=== PATIENT | male | born 1950 | race Caucasian/White ===

== ENCOUNTER → 2017-01-16 | Outpatient (CLI) | payer OTHER ==
[~2017-01-16] MED LIST: ADVI200C9 PO; BUTA1CAP5 PO; CEPH500C3 PO; DIFL0.0512 OP; LORT5TAB PO; NAPR500 PO; OMEP10CA PO
[2017-01-16 13:50] LABS: BLOOD GAS BASE EXCESS -1.4 mmol/L (-2-2); BLOOD GAS CARBOXYHEMOGLOBIN 1.5 % (0-4); BLOOD GAS HCO3 23 mmol/L (22-26); BLOOD GAS METHEMOGLOBIN 1.1 % (0-2); BLOOD GAS O2 HGB SATURATION 95 % (90-100); BLOOD GAS OXYGEN CONTENT 20.2 Vol % (12.0-20.0); BLOOD GAS PCO2 35 mmHg (38-42); BLOOD GAS PO2 97 mmHg (61-120); BLOOD GAS TOTAL HGB 15.1 G/DL (12.0-16.0); CRITICAL VALUE NO; DRAW SITE RT RADIAL; FIO2 21 %; NUMBER OF ARTERIAL PUNCTURES 1; STAT NO; TEMP CORR TO 98.6; ULNAR PULSE PRESENT
--- NOTE | 2017-01-29 11:37 | RSPPFT ---
DATE OF PROCEDURE: 01/16/17 COMMENTS: Spirometry with FVC of 3.2, FEV1 of 2.7, FEV1/FVC ratio 85% of predicted. The TLC is 93%. Diffusion capacity is 68% of predicted and normal when corrected for alveolar volume. Room air arterial blood gases show pH of 7.42, PCO2 of 35, PO2 of 97. IMPRESSION: 1. No evidence of airways obstruction or restriction. 2. Mild reduction in diffusion capacity but normal when corrected for alveolar volume. 3. Adequate oxygenation and alveolar ventilation.
== END ==
LOC: HRSP 11:50
PROVIDERS: ATTEND Internal Medicine Sleep Medicine
DX: R06.89 Other abnormalities of breathing (principal)
CPT/HCPCS: 36600; 82805; 94060; 94726; 94729

== ENCOUNTER 2017-02-03 13:18 | Emergency (ER) | payer OTHER ==
[~2017-02-03] VITALS: Ht 175.3 cm; Wt 87.0 kg
[~2017-02-03 13:18] MED LIST changes: -BUTA1CAP5 PO; -DIFL0.0512 OP; -OMEP10CA PO
[2017-02-03 13:20] VITALS: BP 160/86; PULSE 109; RESP 20; TEMP 98.4; O2SAT 95
[2017-02-03 15:06] VITALS: BP 154/89; PULSE 78; RESP 21; TEMP 98.3; O2SAT 98
[2017-02-03] MEDS ORDERED: DIFL0.0512 OP (15:17)
[2017-02-03] MEDS ORDERED: OMEP10CA PO (15:17)
--- NOTE | 2017-02-03 15:26 | PD ---
HPI Chief Complaint: Headache Time Seen by Provider: 15:26 Travel History International Travel<30 days: No Contact w/Intl Traveler<30days: No Traveled to known affect area: No History of Present Illness HPI Our patient is a 66 year old male presenting with headache of 1 month duration. He describes it as a 8/10 pain band like pain that circles from his forehead to the back of his head like a tight band. He is also experiencing pain behind his right eye. He states that his headache began to get worse yesterday and this morning. He has tried taking 400 mg Advil twice a day for 2 weeks, but this has not resolved completely resolved his pain. Lying down and sitting in a chair make his pain worse. He is experiencing associated fatigue and dyspnea, but denies changes in vision, nausea, vomiting, headache, weakness , chest pain, abdominal pain or irregularities in urine/bowel function. He denies having similar symptoms before and cannot recall a trigger for his headache. PFSH Past Medical History Narrative Medical Subdural hematoma 1 year ago treated with pain medication Uveitis GERD Seasonal allergies Cerebrovascular Accident: Yes GERD: Yes Respiratory: Yes (pulmonary fibrosis ) Immunizations Current: Yes Past Surgical History Surgical History: No Previous Surgery Eye Surgery: Yes (uvtis ) Family History Narrative Family History Heart disease - Father Social History Alcohol Use: Yes (2-3 shots a day ) Tobacco Use: No (quit 25 years ago ) Substance Use: No Allergies-Medications (Allergen,Severity, Reaction): Coded Allergies: No Known Allergies (Verified , 02/03/17) Comments NKDA Reported Meds & Prescriptions Reported Meds & Active Scripts Active Voskdwiall-Armsknencgkps-Dhulnyqv 50-300-40 Mg Cap 1 Cap PO Q4H PRN Do not exceed 6 capsules/day. Reported Durezol Opth (Difluprednate Opth) 0.05% Emul 1 Drop OP BID Omeprazole 10 Mg Cap 10 Mg PO DAILY Narrative Medication List of his home meds were reviewed from the nursing note. Review of Systems Except as stated in HPI: all other systems reviewed are Neg Respiratory: Positive: Shortness of Breath Physical Exam Narrative GENERAL: Awake, alert, moderate distress SKIN: Focused skin assessment warm/dry. HEAD: Atraumatic. Normocephalic. Tenderness on palpation of bitemporal area EYES: Pupils equal and round. No scleral icterus. No injection or drainage. ENT: No nasal bleeding or discharge. Mucous membranes pink and moist. NECK: Trachea midline. No JVD. CARDIOVASCULAR: Regular rate and rhythm. No murmur appreciated. RESPIRATORY: No accessory muscle use. Clear to auscultation. Breath sounds equal bilaterally. GASTROINTESTINAL: Abdomen soft, non-tender, nondistended. Hepatic and splenic margins not palpable. MUSCULOSKELETAL: No obvious deformities. No clubbing. No cyanosis. No edema. NEUROLOGICAL: Awake and alert. No obvious cranial nerve deficits. Motor grossly within normal limits. Normal speech. PSYCHIATRIC: Appropriate mood and affect; insight and judgment normal. Data Data Last Documented VS Orders Complete Blood Count With Diff (02/03/17 16:15) Basic Metabolic Panel (Bmp) (02/03/17 16:15) Ct Brain W/O Iv Contrast(Rout) (02/03/17 16:15) Ecg Monitoring (02/03/17 16:15) Iv Access Insert/Monitor (02/03/17 16:15) Oximetry (02/03/17 16:15) Sodium Chloride 0.9% Flush (Ns Flush) (02/03/17 16:15) Ketorolac Inj (Toradol Inj) (02/03/17 16:15) Metoclopramide Inj (Reglan Inj) (02/03/17 16:15) Sodium Chlor 0.9% 1000 Ml Inj (Ns 1000 M (02/03/17 16:15) Labs MDM Medical Decision Making Medical Screen Exam Complete: Yes Emergency Medical Condition: Yes Medical Record Reviewed: Yes Differential Diagnosis Tension H/A, Migraine, Cluster H/A, intracranial bleed Narrative Course Patient was examined and agreed to CT scan to further evaluate his symptoms. 6:05 PM blood test results of back and CAT scan and they're all within normal limit. I will reassess the patient and he has finished getting his medications and IV fluid and he says his headache is down to 2 out of 10. He's been given instructions and he is comfortable going home. Procedures EKG Prior to Arrival: No Diagnosis Primary Impression: Tension-type headache Qualified Code: G44.211 - Intractable episodic tension-type headache Referrals: Primary Care Physician Additional Instructions: Please return to the ER if the condition worsens or any other new concerns. Otherwise follow-up with your primary care in couple days. Drink lots of fluid , avoid alcohol, cigarettes or any other form of nicotine. Do not watch any television, computer or Smart phones for next 48 hours. Do not treat books or cause any strain to your eyes. Take the medication as per the prescription direction. I feel caffeinated beverages will be helpful. Med/Other Pt SpecificInfo: Prescription(s) given Scripts Kihgyuwhvd-Nfmifdhhxqibi-Qmclyeyh 50-300-40 Mg Cap1 Cap PO Q4H PRN (HEADACHE) # 20 CAP Ref 0 Do not exceed 6 capsules/day. Prov:Jyoti Jaimes MD 02/03/17 Disposition: 01 DISCHARGE HOME Condition: Stable Jyoti Jaimes MD Feb 03, 2017 15:26 Jyoti Jaimes MD Feb 03, 2017 15:26 Lymphocytes # (Auto) 2.0 TH/MM3 Monocytes # (Auto) 0.6 TH/MM3 Eosinophils # (Auto) 0.3 TH/MM3 Basophils # (Auto) 0.1 TH/MM3 CBC Comment DIFF FINAL Differential Comment Sodium Level 138 MEQ/L Potassium Level 4.1 MEQ/L Chloride Level 104 MEQ/L Carbon Dioxide Level 25.5 MEQ/L Anion Gap 9 MEQ/L Blood Urea Nitrogen 12 MG/DL Creatinine 0.72 MG/DL Estimat Glomerular Filtration 109 ML/MIN Rate Random Glucose 81 MG/DL Calcium Level 9.1 MG/DL MDM Medical Decision Making Medical Screen Exam Complete: Yes Emergency Medical Condition: No Differential Diagnosis Tension H/A, Migraine, Cluster H/A, intracranial bleed Narrative Course Patient was examined and agreed to CT scan to further evaluate his symptoms. 6:05 PM blood test results of back and CAT scan and they're all within normal limit. I will reassess the patient and he has finished getting his medications and IV fluid and he says his headache is down to 2 out of 10. He's been given instructions and he is comfortable going home. Procedures EKG Prior to Arrival: No Diagnosis Primary Impression: Tension-type headache Qualified Code: G44.211 - Intractable episodic tension-type headache Referrals: Primary Care Physician Additional Instructions: Please return to the ER if the condition worsens or any other new concerns. Otherwise follow-up with your primary care in couple days. Drink lots of fluid , avoid alcohol, cigarettes or any other form of nicotine. Do not watch any television, computer or Smart phones for next 48 hours. Do not treat books or cause any strain to your eyes. Take the medication as per the prescription direction. I feel caffeinated beverages will be helpful. Med/Other Pt SpecificInfo: Prescription(s) given Scripts Hspeoslhcl-Soeygrwxfuoyh-Djarwejx 50-300-40 Mg Cap1 Cap PO Q4H PRN (HEADACHE) # 20 CAP Ref 0 Do not exceed 6 capsules/day. Prov:Jyoti Jaimes MD 02/03/17 Disposition: 01 DISCHARGE HOME Condition: Stable Jyoti Jaimes MD Feb 03, 2017 15:26
[2017-02-03] MEDS ORDERED: SODIUM CHLORIDE 0.9% FLUSH 10 ML FLUSH IVF PRN (16:15)
[2017-02-03] MEDS ORDERED: KETOROLAC TROMETHAMINE 30 MG/ML (IVP) VIAL IVP ONE (16:15)
[2017-02-03] MEDS ORDERED: SODIUM CHLOR 0.9% 1000 ML INJ 1,000 ML IV ONE (16:15)
[2017-02-03] MEDS ORDERED: METOCLOPRAMIDE HCL 10 MG/2 ML VIAL IVP ONE (16:15)
[2017-02-03 16:37] VITALS: O2SAT 98
[2017-02-03 16:59] VITALS: BP 151/75; PULSE 71; RESP 18; O2SAT 98
[2017-02-03 17:01] LABS: BASOPHIL # 0.1 TH/MM3 (0-0.2); BASOPHIL % 0.8 % (0.0-2.0); EOSINOPHIL # 0.3 TH/MM3 (0-0.4); EOSINOPHIL % 3.6 % (0.0-4.0); HEMATOCRIT 42.8 % (39.0-51.0); HEMO FLAGS DIFF FINAL; LYMPH % 24.9 % (9.0-44.0); MEAN CELL VOLUME 87.3 FL (80.0-100.0); MEAN CORPUSCULAR HGB CONC 33.2 % (32.0-36.0); MONO % 7.3 % (0.0-8.0); NEUT % 63.4 % (16.0-70.0); PLATELET COUNT 285 TH/MM3 (150-450); RED CELL DISTRIBUTION WIDTH 13.4 % (11.6-17.2); WHITE BLOOD COUNT 7.9 TH/MM3 (4.0-11.0)
[2017-02-03 17:26] LABS: BICARBONATE 25.5 MEQ/L (21.0-32.0); POTASSIUM 4.1 MEQ/L (3.5-5.1)
--- NOTE | 2017-02-03 17:43 | RADRPT ---
EXAM DATE/TIME: 02/03/2017 17:10 [facility] COMPARISON: No previous studies available for comparison. INDICATIONS : Cephalgia for two weeks. RADIATION DOSE: 50.32 CTDIvol (mGy) MEDICAL HISTORY : Stroke. pulmonary fibrosis SURGICAL HISTORY : None. ENCOUNTER: Initial ACUITY: 2 weeks PAIN SCALE: 7/10 LOCATION: Bilateral head TECHNIQUE: Multiple contiguous axial images were obtained of the head. Using automated exposure control and adj ustment of the mA and/or kV according to patient size, radiation dose was kept as low as reasonably a chievable to obtain optimal diagnostic quality images. FINDINGS: CEREBRUM: The ventricles are normal for age. No evidence of midline shift, mass lesion, hemorrhage or acute in farction. No extra-axial fluid collections are seen. POSTERIOR FOSSA: The cerebellum and brainstem are intact. The 4th ventricle is midline. The cerebellopontine angle i s unremarkable. EXTRACRANIAL: The visualized portion of the orbits is intact. SKULL: The calvaria is intact. No evidence of skull fracture. CONCLUSION: 1. No acute intracranial abnormality. Emanuel Andre MD on February 03, 2017 at 17:40 Board Certified Radiologist. This report was verified electronically.
[2017-02-03] MEDS ORDERED: BUTA1CAP5 PO (18:07)
[2017-02-03 18:18] VITALS: BP 133/86; PULSE 68; RESP 18; O2SAT 98
== END 2017-02-03 18:26 | disposition home or self-care (01) ==
LOC: NEPC 13:18
DX: G44.211 Episodic tension-type headache, intractable (principal)
CPT/HCPCS: 70450; 80048; 85025; 96361; 96374; 96375; 99285; J1885; J2765; J7030